=== PATIENT | male | born 1995 | race Caucasian/White ===

== ENCOUNTER 2018-09-07 18:44 | Emergency (ER) | payer OTHER ==
[~2018-09-07] VITALS: Ht 188 cm; Wt 95.2 kg
[2018-09-07] MEDS ORDERED: Keflex500 MG PO (20:36)
== END 2018-09-07 21:01 | disposition home or self-care (01) ==
LOC: ER 18:44
DX: S62.631B Displaced fracture of distal phalanx of left index finger, initial encounter for open fracture (principal); W29.8XXA Contact with other powered hand tools and household machinery, initial encounter; Y99.0 Civilian activity done for income or pay
CPT/HCPCS: 11730; 29130; 73140; 90471; 90714; 96372; 99282-25; J0696